=== PATIENT | male | born 1990 | race Caucasian/White ===

== ENCOUNTER 2021-04-22 06:23 | Emergency (ER) | payer MEDICAID, OTHER ==
[~2021-04-22] VITALS: Ht 182.9 cm; Wt 86.4 kg
[~2021-04-22 06:23] MED LIST: CYCL-1 PO; NO HOME MEDS
[2021-04-22 06:40] VITALS: BP 135/78
--- NOTE | 2021-04-22 07:40 | NUR ---
TOOK A SWAB FROM LEFT NARE, SCANT AMOUT OF BLOOD ON THE COVID SWAM... THEN PT. EPISTAXIS WITH A SMALL AMOUNT (ABOUT 5 DRIPS OF BLOOD ON THE GROUND) PT. GIVEN A BOX OF TISSUES. PT. REMAIND PLEASENT THOUGH OUT THE ORDEAL. PT. LEFT WITH HIS GIRL FRIEND AND FORGOT HIS DISCHARGE INSTRUCTIONS
== END 2021-04-22 07:52 | disposition home or self-care (01) ==
LOC: ER 06:24
DX: U07.1 COVID-19 (principal); R43.8 Other disturbances of smell and taste; R06.02 Shortness of breath; R05 Cough; F32.9 Major depressive disorder, single episode, unspecified; Z98.890 Other specified postprocedural states; Z72.89 Other problems related to lifestyle; Z88.1 Allergy status to other antibiotic agents; Z88.8 Allergy status to other drugs, medicaments and biological substances; Z79.899 Other long term (current) drug therapy
CPT/HCPCS: 36415; 99282